=== PATIENT | female | born 2000 | race Caucasian/White ===

== ENCOUNTER 2021-02-26 10:58 | Emergency (ER) | payer BC, MEDICAID, SELFPAY ==
--- NOTE | ~2021-02-26 | US_ITS ---
EXAMINATION: US pelvic complete w TV DATE: 02/26/2021 13:56 INDICATION: Adnexal tenderness TECHNIQUE: Multiple transabdominal sonographic images of the pelvis were obtained. Patient deferred t ransvaginal imaging. COMPARISON: None. FINDINGS: The uterus measures 6.8 x 5.3 x 2.5 cm. The endometrial complex measures 1 mm in thickness. Mildly d ilated parametrial vessels on both the left and right sides of the uterus. The right ovary measures 4 .0 x 1.6 x 2.2 cm. The left ovary is not visualized. Normal vascular flow identified in the right ova ry along with a 9 mm anechoic right ovarian cyst/follicle. There is small amount of likely physiologi c free fluid along the fundus of the uterus. IMPRESSION: 1. Normal pelvic ultrasound. Reviewed, dictated and finalized at location A.
[2021-02-26 11:27] VITALS: BP 105/69; PULSE 86; RESP 18; TEMP 36.3; O2SAT 100
[2021-02-26 13:59] LABS: Add Urine Microscopic? YES; Amorphous Sediment Urine Few; Appearance Urine Cloudy (Clear); Bilirubin Urine Negative (Negative); Blood Urine Negative (Negative); Color Urine Yellow (Yellow); Glucose Urine UA Negative (Negative); Ketones Urine Negative (Negative); Leukocyte Esterase Ur Trace LEU/UL (Negative); Mucus Urine Few /lpf; Nitrate Urine Negative (Negative); Protein Urine Negative (Negative); RBC Urine 0-2 /hpf (0-2); Specific Grav Ur 1.026 (1.001-1.035); Squamous Epithelial Cell Urine Rare /hpf (Few); Urobilinogen Urine Negative mg/dL (<2.0)
--- NOTE | 2021-02-26 14:23 | ED.GENADULT ---
HPI - General Adult General Chief complaint: Unspecified Stated complaint: C section in Dec, scar is hurting Time Seen by Provider: 02/26/21 11:43 History of Present Illness HPI narrative: Patient is a 20-year-old female who presents ER with lower abdominal pain. Reports symptoms began after having intercourse earlier this week. Pain worse on left than the right. Feels like it moves up in her abdomen. She reports she receives Depo-Provera injections with the last injection being 3 weeks ago. No vaginal bleeding or discharge. No dysuria or urinary frequency urgency. Denies constipation. No alleviating factors. Related Data Home Medications Medication Instructions Recorded Confirmed sertraline mg 02/26/21 Allergies Allergy/AdvReac Type Severity Reaction Status Date / Time No Known Allergies Allergy Verified 02/26/21 11:35 Review of Systems Review of Systems: All systems reviewed & are unremarkable except as noted in HPI and below Constitutional: Constitutional: Denies chills and Denies fever(s) Gastrointestinal: Gastrointestinal: Reports abdominal pain, Denies constipation, Denies diarrhea, Denies nausea and Denies vomiting Genitourinary: Genitourinary: Denies abnormal vaginal bleeding, Denies dysuria, Denies urinary urgency and Denies vaginal discharge PMFSH Past Medical History Medical History (Updated 02/26/21 @ 20:45 by Kingsley Frost MD) Healthy female adult Surgical History Surgical History (Updated 02/26/21 @ 14:25 by Kingsley Frost MD) History of section Social History Social History (Updated 02/26/21 @ 14:25 by Kingsley Frost MD) Tobacco type: e-cigarettes/vaping Exam Narrative: GENERAL: Well-appearing, well-nourished, and in no acute distress. HEAD: Normocephalic, atraumatic. CHEST: Clear to auscultation. No respiratory distress. HEART: Regular rate and rhythm. Normal peripheral pulses. ABDOMEN: Soft, nontender, nondistended. Tender palpation left adnexal region without guarding, mild tenderness right adnexal region. EXTREMITIES: Normal range of motion. No edema. SKIN: Warm, dry, no rash. NEURO: Alert and oriented x3. PSYCH: Normal mood and affect. Course Course Emergency Course: Discussed with patient imaging results and need for further work-up. Patient reports she cannot stay because she needs to go pick her children up. She has opted to leave AGAINST MEDICAL ADVICE and is aware of the risks. She has signed AMA paperwork. Vital Signs Vital signs: Vital Signs Temperature 97.4 F L 02/26/21 11:27 Pulse Rate 86 02/26/21 11:27 Respiratory Rate 18 02/26/21 11:27 Blood Pressure 105/69 02/26/21 11:27 Pulse Oximetry 100 02/26/21 11:27 Temperature 97.4 F L 02/26/21 11:27 Pulse Rate 86 02/26/21 11:27 Respiratory Rate 18 02/26/21 11:27 Blood Pressure 105/69 02/26/21 11:27 Pulse Oximetry 100 02/26/21 11:27 Medical Decision Making Vital Signs Vital Signs: Vital Signs Temperature 97.4 F L 02/26/21 11:27 Pulse Rate 86 02/26/21 11:27 Respiratory Rate 18 02/26/21 11:27 Blood Pressure 105/69 02/26/21 11:27 Pulse Oximetry 100 02/26/21 11:27 Temperature 97.4 F L 02/26/21 11:27 Pulse Rate 86 02/26/21 11:27 Respiratory Rate 18 02/26/21 11:27 Blood Pressure 105/69 02/26/21 11:27 Pulse Oximetry 100 02/26/21 11:27 Lab Data Labs: Lab Results 02/26/21 Range/Units 13:36 Urine Color Yellow (Yellow) Urine Appearance Cloudy H (Clear) Urine pH 6.0 (5.0-9.0) Ur Specific [place] 1.026 (1.001-1.035) Urine Protein Negative (Negative) mg/dL Urine Glucose (UA) Negative (Negative) mg/dL Urine Ketones Negative (Negative) mg/dL Ur Blood (Man) Negative (Negative) Urine Nitrate Negative (Negative) Urine Bilirubin Negative (Negative) Urine Urobilinogen Negative (<2.0) mg/dL Leukocyte Esterase Rfl Trace H (Negative) FUAD/UL Urine RBC 0-2 (0-2) /hpf
--- NOTE | 2021-02-26 15:00 | PC.NURSE ---
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 Dr. Frost in to discuss testing up to this point and advised she would need to sign out as testing is not completed. Pt verbalizes understanding and paperwork signed.
== END 2021-02-26 15:10 | disposition left against medical advice (07) ==
PROVIDERS: Emergency Provider Emergency Medicine
DX: R10.2 Pelvic and perineal pain (principal); F17.290 Nicotine dependence, other tobacco product, uncomplicated
CPT/HCPCS: 76830; 76856; 81001; 81025; 99284

== ENCOUNTER 2022-06-24 16:16 | Emergency (ER) | payer BC, MEDICAID, SELFPAY ==
--- NOTE | ~2022-06-24 | XR_ITS ---
XR lumbar spine min 4V 06/24/2022 17:14 Indication: Low back pain Procedure: 5 views lumbar spine Comparison: CT dated 01/26/2015 Findings: Vertebral body and disc heights are preserved. Pedicles intact. No fracture or traumatic ma lalignment. Sacral foramen are symmetric. No evidence for spondylolisthesis. Impression: 1: No significant abnormality of the lumbar spine. Reviewed, dictated and finalized at location A. HIATRIC REGISTERED NURSE Impression: 1: No significant abnormality of the lumbar spine.
[2022-06-24 16:38] VITALS: BP 111/71; PULSE 82; RESP 18; TEMP 36.8; O2SAT 100
--- NOTE | 2022-06-24 16:50 | ED.BACK ---
HPI - Back Pain/Injury General Chief Complaint: Back Pain/Injury Stated Complaint: Lower Back Pain Time Seen by Provider: 06/24/22 16:50 Source: patient Mode of arrival: ambulatory Limitations: no limitations History of Present Illness HPI Narrative: 21-year-old female here with four day onset of back pain. Denies injury. Described as sharp and midline from low back to tailbone, worse with standing straight. Pain has inhibited ability to sleep. Denies history of similar symptoms. Rates 6-10/10. She endorses intermittent 'numbness' from low back down her coccyx into her hamstrings when she is standing which resolves with rest. Denies moving heavy objects, increasing activity, twisting motions. Denies bowl or bladder changes or saddle paresthesia. She has history of epilepsy and has not had any missed doses or changes to medication. Related Data Home Medications Medication Instructions Recorded Confirmed sertraline 100 mg tablet 100 mg PO DAILY 02/26/21 06/24/22 oxcarbazepine 300 mg tablet 300 mg PO BID 06/24/22 06/24/22 propranolol 20 mg tablet 20 mg PO DAILY 06/24/22 06/24/22 Allergies Allergy/AdvReac Type Severity Reaction Status Date / Time No Known Allergies Allergy Verified 06/24/22 16:43 Review of Systems Review of Systems: CONSTITUTIONAL: Denies body aches, fever, chills EYES: Denies visual changes CARDIOVASCULAR: Denies chest pain, palpitations, or edema. RESPIRATORY: Denies cough or dyspnea. GASTROINTESTINAL: Denies abdominal pain, nausea, vomiting, or diarrhea. SKIN: Denies rash, itching, or wounds. MUSCULOSKELETAL: reports constant back pain, intermittent numbness, intermittent tingling. Denies weakness. NEUROLOGIC: Denies headache. All systems reviewed & are unremarkable except as noted in HPI and below PMFSH Past Medical History Medical History Epilepsy Healthy female adult Surgical History Surgical History History of section Social History Social History Tobacco type: e-cigarettes/vaping Comments At time of signature, I have reviewed and agree with nursing past medical, surgical, social and family history unless otherwise noted. Please see nursing chart for further information. There is no relevant family history pertinent to the presenting complaint Exam Narrative: GENERAL: Anxious, well-nourished, appears in pain HEAD: Normocephalic, atraumatic. EYES: conjunctivae clear NECK: Supple. full ROM CHEST: Speaks in full sentences. No respiratory distress. HEART: Regular rate and rhythm. Normal and equal peripheral pulses. MUSC: No Vertebral point tenderness. No apparent SI joint pain or sciatica. BLEs with normal strength and sensation, normal range of motion to flexion, extension, and lateral movement eliciting moderate amount of pain with movement. No edema or ecchymosis, No open wounds, skin tenting, or obvious deformity; alignment normal, pulse palpable and equal bilaterally, skin warm, dry, pink. Capillary refill less than 3 seconds. Gait steady. SKIN: Warm, dry, no rash. NEURO: Alert and oriented x3. Course Course Emergency Course: Patient is aware of diagnosis, understands and agrees to treatment plan. Anticipatory guidance given. Patient agrees to follow-up as directed and is aware of reasons to seek care at the emergency department. Portions of this record may have been created with voice recognition software Level of Care: Express Care Visit Vital Signs Vital signs: Vital Signs Temperature 98.3 F 06/24/22 16:38 Pulse Rate 82 06/24/22 16:38 Respiratory Rate 18 06/24/22 16:38 Blood Pressure 111/71 06/24/22 16:38 Pulse Oximetry 100 06/24/22 16:38 Oxygen Delivery Room Air 06/24/22 16:38 Temperature 98.3 F 06/24/22 16:38 Pulse Rate 82 06/24/22 16:38 Respiratory Rat
== END 2022-06-24 17:40 | disposition home or self-care (01) ==
PROVIDERS: Emergency Provider Nurse Practitioner Family; PCP Registered Nurse
DX: M54.50 Low back pain, unspecified (principal); F17.290 Nicotine dependence, other tobacco product, uncomplicated; G40.909 Epilepsy, unspecified, not intractable, without status epilepticus
CPT/HCPCS: 72110; 99213; G0463

== ENCOUNTER 2024-03-22 03:13 | Emergency (ER) | payer BC, MEDICAID, SELFPAY ==
[2024-03-22 03:18] VITALS: BP 121/52; PULSE 83; RESP 18; TEMP 36.6; O2SAT 100
--- NOTE | 2024-03-22 03:18 | ED.FEMALEGU ---
HPI - Female Genitourinary General Chief complaint: Urogenital-Female Stated complaint: urogenital issue Time Seen by Provider: 03/22/24 03:16 Source: patient Mode of arrival: ambulatory Limitations: no limitations History of Present Illness HPI Narrative: 23-year-old female with a history of seizures, STD presents to the ED with a 1 day history of -- dysuria. No hematuria or back pain -- vaginal itching. no fever or chills. Patient wants to be checked for possible STD. new partner 1 month ago MD elicited complaint: dysuria and possible STD Pertinent past history: STI/STD Onset (ago): day(s) Location of symptoms: external genitalia and urethra Female Urogenital Radiation: Non-Radiating Quality of pain: burning Vaginal discharge: none Vaginal bleeding: none Urinary symptoms: Dysuria Exacerbating factors: none Relieving factors: none Associated symptoms: denies other symptoms Treatment prior to arrival: none Sexual activity: Yes Patient : No Date of Last Menstrual Period: 03/15/24 Related Data Home Medications Medication Instructions Recorded Confirmed oxcarbazepine 300 mg tablet 300 mg PO BID 06/24/22 03/22/24 (Trileptal) Allergies Allergy/AdvReac Type Severity Reaction Status Date / Time No Known Allergies Allergy Verified 03/22/24 03:25 Review of Systems Review of Systems: All systems reviewed & are unremarkable except as noted in HPI and below Constitutional: Constitutional: Reports as per HPI and Reports no additional constitutional complaints Eyes: Eyes: Reports as per HPI and Reports no additional eye complaints ENT: Reports system reviewed and no additional complaints, except as documented and Reports as per HPI Cardiovascular: Cardiovascular: Reports as per HPI and Reports no additional cardiovascular complaints Respiratory: Respiratory: Reports as per HPI and Reports no additional respiratory complaints Gastrointestinal: Gastrointestinal: Reports as per HPI and Reports no additional gastrointestinal complaints Genitourinary: Genitourinary: Reports no additional female genitourinary complaints, Reports as per HPI and Reports dysuria Comments: vaginal itching and dysuria Musculoskeletal: Musculoskeletal: Reports no additional musculoskeletal complaints and Reports as per HPI Integumentary/Breasts: Skin/Breast: Reports system reviewed and no additional complaints, except as docu and Reports as per HPI Neurologic: Reports system reviewed and no additional complaints, except as documented and Reports as per HPI Psychiatric: Psychiatric: Reports no additional psychiatric complaints and Reports as per HPI Endocrine: Endocrine: Reports no additional endocrine complaints and Reports as per HPI Hematologic/Lymphatic: Hematologic/Lymphatic: Reports no additional hematologic/lymphatic complaints and Reports as per HPI Allergic/Immunologic: Allergic/Immunologic: Reports no additional allergic/immunologic complaints [facility] Past Medical History Medical History (Updated 03/22/24 @ 04:26 by Gavin Barrera MD) Epilepsy Healthy female adult STD (female) Surgical History Surgical History History of section Social History Social History Tobacco type: e-cigarettes/vaping Exam Narrative: afebrile Const: General: healthy appearing Nutritional Appearance: well nourished Orientation/consciousness: patient oriented x3 Limitations: no limitations HENMT: Head: normal to inspection Ears: external ears normal Face/Nose/Sinus: Normal external nose present Face and sinus: normal facial exam Throat: posterior oropharynx normal Eyes: Conjunctivae: conjunctivae normal Pupils: Equal, round and reactive pupils present EOM: EOMs intact bilaterally Direct Ophthalmoscopy: no photophobia Neck: Neck: normal visual inspection and no lymphadenopathy Chest: Chest palpation & inspection: normal inspection of the chest Resp: Effort & Inspection: normal respiratory effort Auscultation: clear to auscultation bilaterally Cardio: Rate: regular rate Rhythm: regular rhythm GI: GI Palp: Yes Soft to palpation Other: suprapubic tenderness : General: Yes CVA tenderness ( tenderness on left CVA angle) External Female Exam: normal external appearance Speculum Exam - Vagina: normal appearance of the vagina and abnormal vaginal discharge ( yellow vaginal discharge) Speculum Exam - Cervix: normal appearance of the cervix Bimanual exam- vagina & uterus: cervical motion tenderness Bimanual Exam- Adnexa, other: no masses Back/Spine/Pelvis: Back: no CVA tenderness Skin: General skin exam: normal color Rashes: no rashes Wounds: no wounds Neuro: General: patient oriented x3, moves all extremities, no meningeal signs, no focal motor deficits and CN's II-XI intact bilaterally Speech: normal speech Extrem: General: normal to inspection and no clubbing, cyanosis or edema Psych: Appearance: grossly normal Mental Status: mental status grossly normal Affect: normal affect Course Vital Signs Vital signs: Vital Signs Temperature 36.6 C 03/22/24 03:18 Pulse Rate 83 03/22/24 03:18 Respiratory Rate 18 03/22/24 03:18 Blood Pressure 121/52 L 03/22/24 03:18 Pulse Oximetry 100 03/22/24 03:18 Oxygen Delivery Room Air 03/22/24 03:18 Temperature 36.6 C 03/22/24 03:18 Pulse Rate 83 03/22/24 03:18 Respiratory Rate 18 03/22/24 03:18 Blood Pressure 121/52 L 03/22/24 03:18 Pulse Oximetry 100 03/22/24 03:18 Oxygen Delivery Room Air 03/22/24 03:18 Transfer Transfer comments: vaginitis with yellow vaginal discharge-- suggestive of trichomoniasis. Pelvic inflammatory disease-- patient does not want to be treated with ceftriaxone, doxycycline and metronidazole. Patient wants to get the results of the tests before starting treatment MDM - Female Genitourinary MDM Narrative Medical decision making narrative: vaginitis-- pelvic inflammatory disease-- will treat empirically with Rocephin, doxycycline and Flagyl. Will give a dose of Diflucan Differential Diagnosis Differential diagnosis: Likely urinary tract infection, bacterial vaginosis and trichomoniasis Medical Records Attestation: I reviewed the patient's medical records. Lab Data Attestation: I reviewed the patient's lab results. 03/22/24 04:25 03/22/24 04:25 Labs: Lab Results 03/22/24 03/22/24 Range/Units 03:15 04:25 WBC 5.6 (4.8-10.8) K/mm3 RBC 4.61 (4.20-5.40) M/mm3 Hgb 11.8 L (12.0-15.0) g/dL Hct 37.5 (35.0-49.0) % MCV 81.3 (78.0-102.0) fL MCH 25.6 L (27.0-31.0) pg MCHC 31.5 L (32-36) g/dL RDW 12.6 (11.6-14.4) % Plt Count 261 (150-420) K/mm3 MPV 8.4 L (9.2-11.8) fl ESR Pending Sodium 140 (136-145) mmol/L Potassium 4.1 (3.5-5.1) mmol/L Chloride 105 (98-108) mmol/L Carbon Dioxide 30 (21-32) mmol/L Anion Gap 5 (4-12) mmol/L BUN 16 (7-18) mg/dL Creatinine 0.70 (0.55-1.02) mg/dL Estim Creat Clear Calc 91 ml/min Estimated GFR > 60 (59 - ) Glucose 94 (70-99) mg/dL Calculated Osmolality 291 (285-295) mOsm/kg Calcium 8.7 (8.5-10.1) mg/dL Total Bilirubin 0.2 (0.00-1.00) mg/dL AST 15 (15-37) U/L ALT 18 (14-59) U/L Alkaline Phosphatase 53 (46-116) U/L Total Protein 6.4 (6.4-8.2) g/dL Albumin 4.0 (3.4-5.0) g/dL Urine Color Light yellow (Yellow) Urine Appearance Cloudy A (Clear) Urine pH 5.5 (5.0-8.0) Ur Specific [place] 1.025 H (1.010-1.020) Urine Protein Negative (Negative) Urine Glucose (UA) Negative (Negative) Urine Ketones Negative (Negative) Ur Blood (Man) Negative (Negative) Urine Nitrate Negative (Negative) Urine Bilirubin Negative (Negative) Urine Urobilinogen 0.2 (0.2-1.0) mg/dL Leukocyte Esterase Rfl 1+ H (Negative) FUAD/UL Urine RBC 0-2 (0-2) /hpf Urine WBC 4-6 H (0-3) /hpf Ur Squamous Epith Cells Moderate H (Few) /hpf Urine Bacteria 1+ H (None) /hpf Urine Mucus Moderate H /lpf Urine Test Negative CSF HIV-1 p24 Ag Scrn Pending RPR Pending RPR Titer Add Testing Pending C. trachomatis (PCR) Pending Hepatitis A IgM Ab Pending Hep Bs Antigen Pending Hep B Core IgM Ab Pending Hepatitis C Antibody Pending Hep C Ab Signal/Cutoff Pending Hep C Ab Comment Pending HIV 1&2 Antibody Rapid Pending N. gonorrhoeae (PCR) Pending Discharge Plan Discharge Clinical Impression: Acute pelvic inflammatory disease Vaginitis Qualifiers: Chronicity: acute Qualified Code(s): N76.0 - Acute vaginitis Patient Disposition: Home, Self-Care Condition: Stable Instructions: Antibiotic Form, Pelvic Inflammatory Disease (ED) Additional Instructions: follow-up with your primary care physician to discuss the results of your recent tests Patient Language: Barbadian Prescriptions: New metronidazole 500 mg tablet 500 mg PO Q12H Qty: 28 0RF doxycycline hyclate 100 mg tablet 100 mg PO DAILY Qty: 28 0RF fluconazole 150 mg tablet 150 mg PO ONCE Qty: 1 0RF No Action oxcarbazepine [Trileptal] 300 mg tablet 300 mg PO BID Follow-up/Referrals: UNKNOWN,DOCTOR [Primary Care Provider] - Time of Disposition: 04:58
[2024-03-22 03:45] LABS: Add Urine Microscopic? YES; Appearance Urine Cloudy (Clear); Bilirubin Urine Negative (Negative); Blood Urine Negative (Negative); Color Urine Light Yellow (Yellow); Glucose Urine UA Negative (Negative); Ketones Urine Negative (Negative); Leukocyte Esterase Ur 1+ LEU/UL (Negative); Nitrate Urine Negative (Negative); Protein Urine Negative (Negative); Specific Grav Ur 1.025 (1.010-1.020); Urobilinogen Urine 0.2 mg/dL (0.2-1.0); pH Urine 5.5 (5.0-8.0)
[2024-03-22 03:54] LABS: Bacteria Urine 1+ /hpf; Mucus Urine Moderate /lpf; RBC Urine 0-2 /hpf (0-2); Squamous Epithelial Cell Urine Moderate /hpf (Few)
[2024-03-22 03:55] LABS: Pregnancy On Board Control Positive; Urine Pregnancy Test Negative
--- NOTE | 2024-03-22 04:05 | PC.NURSE ---
this RN present as witness and assist during pelvic examination by Dr. Barrera. Patient tolerated fairly well with some discomfort. update provided by RN and ERP. bilingual sales consultant at bedside for blood draw. call light within reach.
--- NOTE | 2024-03-22 04:13 | PC.NURSE ---
senior portfolio analyst unable to obtain blood, patient refused further tries stating I don't think I have any of that stuff, so I'm good (with not having another blood draw attempt). ERP updated, now at patient bedside for update and plan of care.
--- NOTE | 2024-03-22 04:21 | PC.NURSE ---
ERP and x ray physician again at patient bedside as patient agreeable to attempt to obtain blood work another time.
[2024-03-22 04:31] LABS: Hematocrit 37.5 % (35.0-49.0); Hemoglobin 11.8 g/dL (12.0-15.0); Mean Corpuscular HGB Conc 31.5 g/dL (32-36); Mean Corpuscular Hemoglobin 25.6 pg (27.0-31.0); Mean Corpuscular Volume 81.3 fL (78.0-102.0); Mean Platelet Volume 8.4 fl (9.2-11.8); Platelet Count Result 261 K/mm3 (150-420); Red Blood Count 4.61 M/mm3 (4.20-5.40); Red Cell Distribution Width 12.6 % (11.6-14.4); White Blood Count 5.6 K/mm3 (4.8-10.8)
[2024-03-22] MEDS: cefTRIAXone 500 MG, LIDOCAINE HCL 1% LOCAL INJ 1 ML IM (04:42)
[2024-03-22 04:55] LABS: Alanine Aminotransferase 18 U/L (14-59); Alkaline Phosphatase 53 U/L (46-116); Anion Gap 5 mmol/L (4-12); Aspartate Amino Transferase 15 U/L (15-37); Bilirubin,Total 0.2 mg/dL (0.00-1.00); Blood Urea Nitrogen 16 mg/dL (7-18); Calcium 8.7 mg/dL (8.5-10.1); Carbon Dioxide 30 mmol/L (21-32); Chloride 105 mmol/L (98-108); Estimated CRCL calculation 91 ml/min; Estimated Glomerular Filt Rate > 60; Glucose 94 mg/dL (70-99); Osmolality Calculated 291 mOsm/kg (285-295); Potassium 4.1 mmol/L (3.5-5.1); Sodium 140 mmol/L (136-145); Total Protein 6.4 g/dL (6.4-8.2)
[2024-03-22 05:25] LABS: HIV 1 P24 AG Negative (Negative); HIV 1/2 AB Negative (Negative)
[2024-03-22 05:37] LABS: Erythrocyte Sedimentation Rate 2 mm/hr (0-15)
[2024-03-22 09:01] LABS: Trichomonas Vag PCR NOT DETECTED (NOT DETECTE)
[2024-03-22 09:25] LABS: Chlamydia trachomatis NOT DETECTED (NOT DETECTE); Neisseria gonorrhoeae PCR NOT DETECTED (NOT DETECTE)
[2024-03-23 10:19] LABS: Hepatitis A Antibody IgM NON-REACTIVE (NON-REACTIVE); Hepatitis B Core Antibody NON-REACTIVE (NON-REACTIVE); Hepatitis B Surface Antigen NON-REACTIVE (NON-REACTIVE); Hepatitis C Virus Antibody NON-REACTIVE (NON-REACTIVE)
[2024-03-23 11:43] LABS: Bacterial Vaginosis NEGATIVE (NEGATIVE)
--- NOTE | 2024-03-24 12:24 | PC.NURSE ---
final urine culture report reviewed. no growth isolated. no change in plan of care
== END 2024-03-22 05:10 | disposition home or self-care (01) ==
PROVIDERS: Emergency Provider Internal Medicine Critical Care Medicine
DX: N76.0 Acute vaginitis (principal); N73.0 Acute parametritis and pelvic cellulitis; Z11.3 Encounter for screening for infections with a predominantly sexual mode of transmission
CPT/HCPCS: 36415; 80053; 80074; 81001; 81025; 81513; 85027; 85652; 86592; 87086; 87491; 87591; 87661; 87806; 96372; 99284; J0696; J2003